=== PATIENT | male | born 1990 | race Caucasian/White ===

== ENCOUNTER → 2017-12-21 | Outpatient (CLI) | payer OTHER ==
[~2017-12-21] MED LIST: TETR250C3 PO
--- NOTE | 2017-12-21 09:59 | DIAGNOSTIC IMAGING REPORT ---
RIGHT SHOULDER 3 VIEWS HISTORY: Right shoulder pain. COMPARISON: None. FINDINGS: There is no fracture or dislocation. Soft tissues are unremarkable. The right clavicle and AC joint are within normal limits. Cartilage spaces are maintained for age. IMPRESSION: Unremarkable right shoulder by conventional radiographic technique. Electronically signed by: Dion Louis M.D. 12/21/2017 9:58 AM Dictated Date/Time: 12/21/2017 9:57 AM
== END | disposition home or self-care (01) ==
LOC: C.RAD1850 09:45
PROVIDERS: ATTEND Family Medicine
DX: M25.511 Pain in right shoulder (principal)